=== PATIENT | male | born 1960 | race Caucasian/White ===

== ENCOUNTER → 2024-04-28 09:28 | Outpatient (REF) | payer OTHER, SELFPAY | LOC: RCS 09:28 | PROVIDERS: ATTENDING PHYSICIAN Internal Medicine | DX: E78.00 Pure hypercholesterolemia, unspecified (principal); R07.9 Chest pain, unspecified | CPT/HCPCS: 93017; 93350 ==

== ENCOUNTER → 2024-05-11 08:23 | Outpatient (REF) | payer OTHER, SELFPAY | LOC: RAD 08:23 | PROVIDERS: ATTENDING PHYSICIAN Internal Medicine | DX: E21.3 Hyperparathyroidism, unspecified (principal) | CPT/HCPCS: 78071; A9500 ==

== ENCOUNTER 2024-08-02 06:05 | Day surgery (SDC) | payer OTHER, SELFPAY ==
[2024-06-27 11:24] LABS: Hematocrit 51.7 % (39.0-52.0); Hemoglobin 16.6 g/dL (13.0-18.0); Mean Corp Hgb Conc. 32.1 g/dL (33.0-37.0); Mean Corpuscular Hgb 31.6 pg (27.0-31.0); Mean Corpuscular Volume 98.5 fL (80.0-94.0); Mean Platelet Volume 9.5 fL (7.4-10.4); Platelet Count 213 10^3/uL (130-400); Red Blood Cell Count 5.25 10^6/uL (4.70-6.10)
[2024-06-27 11:41] LABS: INR 0.95
[2024-06-27 11:42] LABS: APTT 30.6 Sec (23.4-35.0)
[2024-06-27 11:56] LABS: ALT (SGPT) 33 U/L (0-50); AST (SGOT) 29 U/L (17-59); Albumin 4.3 g/dl (3.5-5.0); Alkaline Phosphatase 74 U/L (38-126); Blood Urea Nitrogen 21 mg/dl (9-20); Calcium 10.5 mg/dl (8.4-10.2); Carbon Dioxide 29 mmol/L (22-30); Chloride 103 mmol/L (98-107); Glucose 97 mg/dl (70-99); Potassium 4.4 mmol/L (3.5-5.1); Sodium 138 mmol/L (135-145); Total Bilirubin 0.5 mg/dl (0.2-1.3); Total Protein 6.9 g/dl (6.3-8.2); eGFR > 60.00
[2024-06-27 12:39] VITALS: BMI 27.7
--- NOTE | 2024-06-30 15:13 | PTCARENOTE ---
Patients 06/27 ECG abnormal- reviewed by Dr. Curiel. Dr. Curiel requested additional patient information- PCP and surgeons office notified, requested any additional information be faxed to preadmssions.
[2024-08-02] VITALS (9 sets, daily range): BP systolic 100–138; BP diastolic 70–95; BMI 27.7
[2024-08-02] MEDS: NEURONTIN 300 MG PO (06:39)
[2024-08-02] MEDS: TYLENOL 1000 MG PO (06:39)
[2024-08-02] MEDS: HEPARIN 5000 UNITS SC (06:39)
[2024-08-02] MEDS: NORMOSOL-R/PLASMALYTE-A 1000 IV (06:40)
[2024-08-02 08:15] LABS: Turbo PTH 162.3 pg/ml (13.6-85.8)
--- NOTE | 2024-08-02 08:56 | OR.RPT ---
Operative Report
Operative Report
Date of Operation: August 02, 2024
Preoperative Diagnosis: �Parathyroid hyperparathyroidism - E210
Postoperative Diagnosis: Same
Surgeon: Krzysztof Mathew M.D.
Operation: Neck exploration and Left Inferior Parathyroidectomy - 15284
Anesthesia: GET
Estimated Blood Loss: 3 cc
Drains: None
Specimen: �Left inferior neck nodule, rule out parathyroid adenoma
Complications: �None
Procedure:
The patient was taken to the operating room and placed in the usual supine position. After adequate general endotracheal anesthesia was established, the patient's neck was extended, prepped, and draped in the typical sterile fashion. A 4 cm
transcervical incision was made two fingerbreadths above the sternal notch. The skin incision was made with the #15 blade, and this was taken through the skin into the subcutaneous tissue. The underlying platysma muscle was divided, and subplatysmal
flaps were created superiorly to the thyroid cartilage and inferiorly to the sternal notch. Strap muscles were identified and at the midline.
The attention was turned to the left side of the neck. The left thyroid lobe was mobilized medially. During this process, the left recurrent laryngeal nerve was identified and preserved throughout the surgery. The left lower neck nodule was
identified and noted to be enlarged, excised, and sent to the pathology department, which showed a hypercellular parathyroid gland. The intraoperative PTH levels normalized.
After obtaining adequate hemostasis, the strap muscles were reapproximated with #3-0 Vicryl in a running fashion. The platysma muscle was reapproximated with #3-0 Vicryl in an interrupted fashion, and the skin was approximated with #4-0 Monocryl in
a running subcuticular fashion. The Steri-Strips and sterile dressings were placed. The patient tolerated the procedure well. The final instrument, needle, and sponge counts were correct. The patient was extubated and transferred to the PACU.
[2024-08-02 09:14] LABS: Turbo PTH 22.6 pg/ml (13.6-85.8)
== END 2024-08-02 11:59 | disposition home or self-care (01) ==
LOC: SDS 06:05
PROVIDERS: ATTENDING PHYSICIAN Surgery; FAMILY PHYSICIAN Internal Medicine
DX: D35.1 Benign neoplasm of parathyroid gland (principal); E21.3 Hyperparathyroidism, unspecified
CPT/HCPCS: 60500; 88305; 88332; 80053; 83970; 85027; 85610; 85730; 88331; 93005; C1776

== ENCOUNTER → 2024-09-12 09:33 | Outpatient (REF) | payer OTHER, SELFPAY | LOC: RAD 09:33 | PROVIDERS: ATTENDING PHYSICIAN Internal Medicine Cardiovascular Disease; FAMILY PHYSICIAN Internal Medicine | DX: R07.2 Precordial pain (principal) | CPT/HCPCS: 75574; Q9967 ==